=== PATIENT | male | born 1955 | race Caucasian/White ===

== ENCOUNTER 2016-05-09 23:05 | Emergency (ER) | payer OTHER ==
[~2016-05-09] VITALS: Ht 175.2 cm; Wt 113.4 kg
[~2016-05-09 23:05] MED LIST: ASCO-CAPS-500500 MG PO; ASPIRIN ADULT L81 M1 PO; ASPIRIN325 MG PO; ATORVASTATIN CA20 M1 PO; B-1100 M1 PO; COLACE100 MG PO; CRESTOR20 M1 PO; DAILY MULTIPLE1 TA6 PO; FERROUS SULFAT324 M2 PO; FERROUS SULFAT324 MG PO; FISH OIL CONC1000 MG PO; GEODON80 MG PO; GLUCOPHAGE500 M1 PO; LASIX20 MG PO; METOPROLOL SUC100 M1 PO; METOPROLOL SUCC50 M1 PO; METOPROLOL TART50 M1 PO; METOPROLOL50 MG PO; MIRTAZAPINE15 M2 PO; MIRTAZAPINE30 M2 PO; MULTI VITAMINS1 TAB PO; NATURE'S BLEND F1 MG PO; NITROGLYCERIN0.4 MG SL; NITROSTAT0.4 MG SL; OMEPRAZOLE D/R20 MG PO; OMEPRAZOLE MAGNESIUM PO; OMEPRAZOLE20 M2 PO; POTASSIUM CHLORIDE E PO; PRILOSEC20 MG PO; PRILOSEC40 M1 PO; PROVENTIL0.09 MG/A1 INH; QUETIAPINE FUM100 M1 PO; QUETIAPINE FUM100 M3 PO; SEROQUEL XR300 MG PO; SEROQUEL XR400 MG PO; SEROQUEL100 MG PO; SEROQUEL400 M1 PO; SEROQUEL400 MG PO; SIMVASTATIN80 MG PO; SPIRIVA18 MCG PO; SYNTHROID0.025 MG PO; VENTOLIN H0.09 MG/AC INH; VITAMIN B-11 TAB PO; VITAMIN D31000 UNIT PO; VITAMIN D50000 I3 PO; ZIPRASIDONE HCL80 M1 PO; ZITHROMAX250 MG PO
[2016-05-10 03:50] LABS: BILIRUBIN NEGATIVE (NEGATIVE); BLOOD NEGATIVE (NEGATIVE); CLARITY CLEAR (CLEAR); COLOR YELLOW (YELLOW); GLUCOSE NEGATIVE (NEGATIVE); KETONE NEGATIVE (NEGATIVE); LEUKO ESTERASE NEGATIVE (NEGATIVE); NITRITE NEGATIVE (NEGATIVE); PROTEIN NEGATIVE (NEGATIVE); SPECIFIC GRAVITY <= 1.005 (1.005-1.030); UROBILINOGEN 0.2 E.U./dl (0.2-1.0)
[2016-05-10 03:51] LABS: BASO # 0.1 10*3/uL (0.0-0.1); BASO % 1.4 % (0.0-1.0); EOS # 0.3 10*3/uL (0.0-0.4); EOS % 4.4 % (1.0-4.0); HEMATOCRIT 44.6 % (42.0-52.0); IG # 0.1 10*3/uL (0.0-0.1); LYMPH % 41.1 % (27.0-41.0); MEAN CELL VOLUME 90.8 fl (80.0-94.0); MEAN CORPUSCULAR HGB 30.5 pg (27.0-31.0); MEAN CORPUSCULAR HGB CONC 33.6 g/dl (33.0-37.0); MEAN PLATELET VOLUME 10.4 fl (9.6-12.3); MONO # 0.3 10*3/uL (0.1-1.0); MONO % 4.4 % (3.0-9.0); NEUT # 3.5 10*3/uL (2.3-7.9); NEUT % 47.7 % (47.0-73.0); PLATELET COUNT AUTOMATED 248 10*3/uL (130-400); RED BLOOD COUNT 4.91 10*6/uL (4.50-5.90); RED CELL DISTRI WIDTH 13.1 % (0-14.5); WHITE BLOOD COUNT 7.3 10*3/uL (4.8-10.8)
[2016-05-10 03:56] LABS: EPITHELIAL CELLS 0-5
[2016-05-10 03:57] LABS: URINE REFLEX COMMENT NO (NO); WBC 0-2 wbc/hpf (0-5)
[2016-05-10 04:07] LABS: URINE AMPHETAMINES < 1000 (1000ng/ml); URINE BARBITURATES < 200 (200ng/ml); URINE COCAINE < 300 (300ng/ml)
[2016-05-10 04:08] LABS: ALBUMIN 3.7 gm/dl (3.1-4.5); ALKALINE PHOSPHATASE 100 U/L (45-117); BILIRUBIN, TOTAL 0.2 mg/dl (0.2-1.0); BUN 7 mg/dl (7-24); CARBON DIOXIDE 26 mmol/L (21-32); CHLORIDE 105 mmol/L (98-107); EST GLOM FILT AFRICAN AMERICAN > 60 ml/min; GLUCOSE 106 mg/dL (65-99); POTASSIUM 4.6 mmol/L (3.5-5.1); SGOT/AST 23 IU/L (3-35); SGPT/ALT 31 U/L (12-78); SODIUM 143 mmol/L (136-145); TOTAL PROTEIN 7.2 gm/dL (6.4-8.2)
[2016-05-10] MEDS ORDERED: SEROQUEL XR50 MG PO (07:51)
== END 2016-05-10 14:11 | disposition home or self-care (01) ==
LOC: ED 23:05
PROVIDERS: Emergency Medicine Emergency Medical Services
DX: R78.0 Finding of alcohol in blood (principal); I48.91 Unspecified atrial fibrillation; I25.10 Atherosclerotic heart disease of native coronary artery without angina pectoris; J44.9 Chronic obstructive pulmonary disease, unspecified; E03.9 Hypothyroidism, unspecified; K21.9 Gastro-esophageal reflux disease without esophagitis; F32.9 Major depressive disorder, single episode, unspecified; F17.200 Nicotine dependence, unspecified, uncomplicated; F12.10 Cannabis abuse, uncomplicated; F31.9 Bipolar disorder, unspecified; F20.9 Schizophrenia, unspecified; Z88.6 Allergy status to analgesic agent; Z79.82 Long term (current) use of aspirin; Z79.899 Other long term (current) drug therapy

== ENCOUNTER 2016-06-15 14:26 | Inpatient (IN) | payer OTHER ==
[~2016-06-15] VITALS: Ht 172.7 cm; Wt 86.2 kg
--- NOTE | ~2016-06-15 | EKG ---
[place], [place] ELECTROCARDIOGRAM REPORT NAME: CELESTINO RESENDIZ SR UNIT #: [id number] ROOM: [facility] [place] DOCTOR: JULIANNE ARMSTRONG MD BIRTHDATE: [birth year] DOS: 06/15/2016 TIME: 1810 hours. FINDINGS: 1. Normal sinus rhythm at 72 with normal axis. 2. Normal electrocardiogram. JULIANNE ARMSTRONG MD CM:EKGRPT:ELECTROCARDIOGRAM REPORT [id number] JULIANNE ARMSTRONG MD
--- NOTE | ~2016-06-15 | CON ---
[place], [place] REPORT OF CONSULTATION [id number] #: [id number] ROOM: 401 DOCTOR: RAD LUEVANO MD BIRTHDATE: [birth year] DOS: 06/17/2016 PSYCHIATRIC CONSULTATION CHIEF COMPLAINT: "I have been abusing this body for 46 years. I better do something about much longer" HISTORY OF PRESENT ILLNESS: This is a 61-year-old white male who is well known to me from previous stays on the [facility]. He presents now for the [facility] due to alcohol withdrawal. He states he drinks 12-24 ounce beers a day. He also smokes marijuana and uses other drugs. He recently did smoke some crack cocaine. He does have a significant history of schizoaffective disorder and does currently endorse depression with positive auditory hallucinations. He is hearing voices. At times, the voices tell him to hurt himself or others. PAST MEDICAL HISTORY: Remarkable for atrial fibrillation, benign tumor of the esophagus, coronary artery disease, COPD, GERD, hypothyroidism, and a history of schizoaffective disorder as well as polysubstance dependence. MENTAL STATUS: He is alert and oriented. Mood is rather labile. He exhibits both symptoms of depression as well as shelby. He is also grossly psychotic and is experiencing significant hallucinations. Memory is fairly intact. DIAGNOSIS: Schizoaffective disorder, bipolar type. PLAN: I will go ahead and augment his Seroquel, which he is taking with Invega. The severity of his mood lability and psychosis is such that I do think he would benefit from the Invega. The other benefit that it has is we can consider switching him to Invega Sustenna, which will improve his compliance greatly and may also help him for prevent relapse on substance abuse. I do think he self medicate to cover the voices. He is willing to come down to the psychiatric unit once he is medically cleared. RAD LUEVANO MD CM:CONSTR:REPORT OF CONSULTATION 1201 06/18/16 0352 interface
[~2016-06-15 14:26] MED LIST changes: +SEROQUEL XR50 MG PO
[2016-06-15] MEDS ORDERED: QUETIAPINE FUM100 M2 PO (15:06)
[2016-06-15 15:07] VITALS: BP 124/76
[2016-06-15 15:23] LABS: BILIRUBIN NEGATIVE (NEGATIVE); BLOOD NEGATIVE (NEGATIVE); CLARITY CLEAR (CLEAR); COLOR STRAW (YELLOW); GLUCOSE NEGATIVE (NEGATIVE); KETONE NEGATIVE (NEGATIVE); LEUKO ESTERASE NEGATIVE (NEGATIVE); NITRITE NEGATIVE (NEGATIVE); PROTEIN NEGATIVE (NEGATIVE); SPECIFIC GRAVITY <= 1.005 (1.005-1.030); UROBILINOGEN 0.2 E.U./dl (0.2-1.0)
[2016-06-15 15:29] LABS: URINE AMPHETAMINES < 1000 (1000ng/ml); URINE BARBITURATES < 200 (200ng/ml); URINE COCAINE < 300 (300ng/ml)
[2016-06-15 15:39] LABS: BASO # 0.1 10*3/uL (0.0-0.1); BASO % 1.6 % (0.0-1.0); EOS # 0.2 10*3/uL (0.0-0.4); EOS % 2.5 % (1.0-4.0); HEMATOCRIT 43.7 % (42.0-52.0); HEMOGLOBIN 14.6 g/dl (14.0-18.0); LYMPH # 2.3 10*3/uL (1.3-4.4); LYMPH % 31.2 % (27.0-41.0); MEAN CORPUSCULAR HGB 30.4 pg (27.0-31.0); MEAN CORPUSCULAR HGB CONC 33.4 g/dl (33.0-37.0); MEAN PLATELET VOLUME 10.2 fl (9.6-12.3); MONO # 0.6 10*3/uL (0.1-1.0); MONO % 7.5 % (3.0-9.0); NEUT # 4.2 10*3/uL (2.3-7.9); NEUT % 56.9 % (47.0-73.0); PLATELET COUNT AUTOMATED 233 10*3/uL (130-400); WHITE BLOOD COUNT 7.3 10*3/uL (4.8-10.8)
[2016-06-15 15:49] LABS: EPITHELIAL CELLS 0-2; URINE REFLEX COMMENT NO (NO); WBC 0-2 wbc/hpf (0-5)
[2016-06-15 15:54] LABS: ALBUMIN 3.5 gm/dl (3.1-4.5); ALKALINE PHOSPHATASE 79 U/L (45-117); BILIRUBIN, TOTAL 0.2 mg/dl (0.2-1.0); BUN 7 mg/dl (7-24); CARBON DIOXIDE 22 mmol/L (21-32); CHLORIDE 107 mmol/L (98-107); EST GLOM FILT AFRICAN AMERICAN > 60 ml/min; GLUCOSE 93 mg/dL (65-99); POTASSIUM 4.6 mmol/L (3.5-5.1); SGOT/AST 21 IU/L (3-35); SGPT/ALT 24 U/L (12-78); SODIUM 141 mmol/L (136-145); TOTAL PROTEIN 7.1 gm/dL (6.4-8.2)
[2016-06-15 17:21] VITALS: BP 128/75
[2016-06-15] MEDS ORDERED: SEROQUEL XR400 MG PO (17:23)
[2016-06-15] MEDS ORDERED: LOPRESSOR50 M1 PO (17:24)
[2016-06-15 20:00] VITALS: BP 145/86
[2016-06-16] VITALS: BP 102/53
[2016-06-16 04:00] VITALS: BP 104/54
[2016-06-16 08:00] VITALS: BP 133/68
[2016-06-16 12:00] VITALS: BP 135/70
[2016-06-16 16:00] VITALS: BP 125/65; BP 138/73
[2016-06-16 20:00] VITALS: BP 132/75
[2016-06-17] VITALS: BP 152/92
[2016-06-17 08:00] VITALS: BP 132/66
[2016-06-17 12:00] VITALS: BP 146/58
[2016-06-17 16:00] VITALS: BP 140/80
[2016-06-17 20:00] VITALS: BP 153/75
[2016-06-18] VITALS: BP 116/80
[2016-06-18 08:00] VITALS: BP 110/62
[2016-06-18 12:00] VITALS: BP 113/59
[2016-06-18] MEDS ORDERED: NITROSTAT0.4 MG SL (15:06)
[2016-06-18] MEDS ORDERED: VITAMIN B-11 TAB PO (15:30)
[2016-06-18] MEDS ORDERED: NATURE'S BLEND F1 MG PO (15:31)
[2016-06-18] MEDS ORDERED: MULTIVITAMIN1 TAB PO (15:31)
[2016-06-18] MEDS ORDERED: SENOKOTXTRA17.2 MG PO (15:31)
[2016-06-18] MEDS ORDERED: ZOFRAN4 MG PO (15:32)
[2016-06-18] MEDS ORDERED: ROBAXIN-750750 MG PO (15:33)
[2016-06-18] MEDS ORDERED: IMODIUM A-D2 M3 PO ×2 (15:33)
[2016-06-18] MEDS ORDERED: BENTYL10 MG PO (15:34)
[2016-06-18] MEDS ORDERED: DULCOLAX10 M1 RC (15:35)
== END 2016-06-18 13:10 | disposition home health service (06) | DRG 897 ==
LOC: ED 14:26 → 4E 16:12 → EDHOLD 16:12 → 4E 16:43
PROVIDERS: Physician Assistant
DX: F10.239 Alcohol dependence with withdrawal, unspecified (principal); I48.0 Paroxysmal atrial fibrillation; I25.10 Atherosclerotic heart disease of native coronary artery without angina pectoris; J44.9 Chronic obstructive pulmonary disease, unspecified; K21.9 Gastro-esophageal reflux disease without esophagitis; E03.9 Hypothyroidism, unspecified; F12.10 Cannabis abuse, uncomplicated; F17.210 Nicotine dependence, cigarettes, uncomplicated; F25.0 Schizoaffective disorder, bipolar type; Z95.1 Presence of aortocoronary bypass graft; Z95.5 Presence of coronary angioplasty implant and graft; Z90.49 Acquired absence of other specified parts of digestive tract; Z71.6 Tobacco abuse counseling; Z80.0 Family history of malignant neoplasm of digestive organs; Z82.49 Family history of ischemic heart disease and other diseases of the circulatory system; Z88.8 Allergy status to other drugs, medicaments and biological substances; Z79.51 Long term (current) use of inhaled steroids; Z79.82 Long term (current) use of aspirin

== ENCOUNTER 2016-06-18 11:36 | Inpatient (IN) | payer OTHER ==
[~2016-06-18] VITALS: Ht 172.7 cm; Wt 87.1 kg
--- NOTE | ~2016-06-18 | DS ---
[place], [place] DISCHARGE SUMMARY NAME: CELE[facility]INO RESENDIZ SR [facility] #: [id number] UNIT #: [id number] ROOM: 310 DOCTOR: ALEYDA MALDONADO BIRTHDATE: [birth year] DOS: 06/21/2016 HISTORY OF PRESENT ILLNESS: This is a 61-year-old male known to us from previous stays at the behavioral health unit as well as psych consults while on the medical floor. The patient had presented to [facility] with significant alcohol withdrawal symptoms. He drinks approximately twelve 24 ounce beers a day. He also smokes marijuana and uses any drugs he can. Most recently, he had some crack cocaine. Significant history of schizoaffective disorder and found to be increasingly more depressed and despondent, having positive auditory hallucinations, often times they command him and tell him to hurt himself or others, sometimes the voices just comment on what he is doing. He is open to receiving help and adjusting medications as needed. PAST MEDICAL HISTORY: AFib, benign tumor of the esophagus, coronary artery disease, COPD, GERD, hypothyroidism, polysubstance dependence and abuse, schizoaffective disorder. DIAGNOSIS: AXIS I: Schizoaffective disorder. HOSPITAL COURSE: We discontinued his Geodon in lieu of Invega 6 mg in the morning. He tolerated the medications without side effect. We ultimately gave him a loading dose of the Invega Sustenna. His second loading dose is due on 06/26/2016 at 156 mg IM and then he will receive this monthly, next dose will be due on 07/27/2016. No side effects of the medications observed. We maintained his Seroquel to help with mood stabilization due to his severity of his psychosis and his mixed polysubstance dependence, this also is aiding him in sleep. We are using the 2 antipsychotics and it is warranted at this point given the severity of his symptoms and multiple psychiatric admissions. We engaged in individual and haas milieu therapy and worked with director social welfare for further drug abuse treatment. MENTAL STATUS: Alert and oriented to person, place, and time. Mood is euthymic. Affect is appropriate. There is no shelby or hypomania. Denies and actually states that his hallucinations are gone. Memory is intact. The patient was supposed to be discharged tomorrow, but he is adamant that it has been 1:30 today, will be 24 hours since his last shot and he wants to go home. PLAN: The patient is being discharged to home in stable condition. He received his Invega Sustenna injection of 234 mg yesterday. His second loading dose of the Invega Sustenna at 156 mg IM, is due on 06/26/2016. [facility]. He will then receive his Invega Sustenna injection monthly thereafter at 156 mg. He is also on Seroquel 600 mg at bedtime at 8:00 p.m. to help with sleep and mood lability. He will follow up with the drug treatment center as scheduled. [place], [place] DISCHARGE SUMMARY NAME: CELESTINO RESENDIZ SR UNIT #: [id number] ROOM: [facility] DOCTOR: ALEYDA MALDONADO BIRTHDATE: [birth year] CHERI MALDONADO CNP CM:GLEN [id number] 05 ALEYDA MALDONADO 06/21/16 2113 interface
--- NOTE | ~2016-06-18 | WRIGHTHP ---
[place], [place] PATIENT HISTORY AND PHYSICAL EXAM NAME: CELESTINO RESENDIZ SR [facility] #: [id number] UNIT #: [id number] ROOM: 310 DOCTOR: RAD LUEVANO MD BIRTHDATE: [birth year] DOS: 06/18/2016 CHIEF COMPLAINT: "I am still seeing things and hearing things, I just want to get better." HISTORY OF PRESENT ILLNESS: This is a 61-year-old white male well known to me from previous stays at the [facility] as well as a psych consult while on the medical floor. The patient had presented to [facility] with significant alcohol withdrawal symptoms. He reports he drinks twelve 24 ounce beers daily. He also smokes marijuana and uses any drugs he can. Most recently, he did smoke crack cocaine. The patient has a significant history of schizoaffective disorder and has found that recently he has been increasingly more depressed and despondent and has been having positive auditory hallucinations. The hallucinations oftentimes are command and they tell him to hurt himself or others and at other times, the voices just comment on what he is doing. He is very open to receiving help and once his medications adjusted so that these symptoms will be minimized. PAST MEDICAL HISTORY: Remarkable for atrial fibrillation, a benign tumor of the esophagus, coronary artery disease, COPD, GERD, hypothyroidism, polysubstance dependence and schizoaffective disorder. MENTAL STATUS: The patient is alert and oriented to person, place, and time. Mood is somewhat depressed with some anxious overtones. He endorses both the presence of auditory and visual hallucinations as well as command hallucinations. The voices are troublesome and often keep him awake at night. There are no symptoms of shelby or hypomania. His memory is relatively intact. DIAGNOSES: Schizoaffective disorder and polysubstance dependence. PLAN: I have already discontinued his Geodon in lieu of Invega 6 mg in the morning. My hope is to ultimately load him with Invega Sustenna hoping that this improves compliance and listens to the possibility of side effects. Given his severity of his psychosis, especially when mixed with polysubstance dependence, I will maintain him on his Seroquel as this has given him some mood stabilization properties and aid to his sleep. The use of 2 antipsychotics is warranted at this point given the severity of symptoms and his multiple psychiatric admissions. We will engage him in individual and haas milieu activity. We will discuss the case with director of social services regarding further drug abuse treatment and will proceed accordingly. [place], [place] PATIENT HISTORY AND PHYSICAL EXAM NAME: CELESTINO RESENDIZ SR UNIT #: [id number] ROOM: 310 DOCTOR: RAD LUEVANO MD BIRTHDATE: [birth year] RAD LUEVANO MD CM:HISPHYS:PATIENT HISTORY AND PHYSICAL EXAMINATION 3 2 RAD LUEVANO MD 06/19/16 0824 interface
--- NOTE | ~2016-06-18 | PR ---
[place], [place] PROGRESS NOTE NAME: CELESTINO RESENDIZ SR UNIT #: [id number] ROOM: 310 DOCTOR: RAD LUEVANO MD BIRTHDATE: [birth year] DOS: 06/20/2016 CHIEF COMPLAINT: "I like that Seroquel at nighttime." SUMMARY OF THE VISIT: The patient was interviewed in the [place]. He was standing looking out the window. He stopped and engaged readily in conversation. He reports that he does like taking all the Seroquel at nighttime because it did help him sleep and stopped his racing thoughts. He still does complain of hallucinations, but feels that they are gradually getting better since he has been here. He is also on board with receiving the Invega Sustenna injection and is willing to have that today and followup then at [facility] for the future injections. MENTAL STATUS: He is alert and oriented to person, place and time. Mood does seem to be trending towards euthymia. Affect is more appropriate. There are no symptoms of hypomania or shelby. He still endorses positive auditory hallucinations, some of them command, but the frequency and intensity does seem to be diminishing. Memory is fully intact. PLAN: I will load him with Invega Sustenna 234 mg IM today. He will receive a secondary loading dose of Invega Sustenna 156 mg IM on 06/26/2016 at the [facility] or through visiting nurses. He will then receive Invega Sustenna injections monthly thereafter while also maintaining with the Seroquel at bedtime. We will continue to engage him in individual and haas milieu activity with the plan to discharge then when psychiatrically stable. RAD LUEVANO MD CM:PNTRANS 0741 1352 RAD LUEVANO MD 06/20/16 1353 interface
[~2016-06-18 11:36] MED LIST changes: +LOPRESSOR50 M1 PO; +QUETIAPINE FUM100 M2 PO
[2016-06-18 13:44] VITALS: BP 114/60
[2016-06-18] MEDS ORDERED: NITROSTAT0.4 MG SL (15:06)
[2016-06-18 15:11] VITALS: BP 114/60
[2016-06-18] MEDS ORDERED: VITAMIN B-11 TAB PO (15:30)
[2016-06-18] MEDS ORDERED: NATURE'S BLEND F1 MG PO (15:31)
[2016-06-18] MEDS ORDERED: SENOKOTXTRA17.2 MG PO (15:31)
[2016-06-18] MEDS ORDERED: MULTIVITAMIN1 TAB PO (15:31)
[2016-06-18] MEDS ORDERED: ZOFRAN4 MG PO (15:32)
[2016-06-18] MEDS ORDERED: ROBAXIN-750750 MG PO (15:33)
[2016-06-18] MEDS ORDERED: IMODIUM A-D2 M3 PO ×2 (15:33)
[2016-06-18] MEDS ORDERED: BENTYL10 MG PO (15:34)
[2016-06-18] MEDS ORDERED: DULCOLAX10 M1 RC (15:35)
[2016-06-18 19:35] VITALS: BP 125/71
[2016-06-19 06:57] LABS: BASO # 0.1 10*3/uL (0.0-0.1); BASO % 1.3 % (0.0-1.0); EOS # 0.3 10*3/uL (0.0-0.4); EOS % 3.3 % (1.0-4.0); HEMATOCRIT 47.4 % (42.0-52.0); HEMOGLOBIN 15.3 g/dl (14.0-18.0); LYMPH # 2.5 10*3/uL (1.3-4.4); LYMPH % 24.6 % (27.0-41.0); MEAN CELL VOLUME 93.9 fl (80.0-94.0); MEAN CORPUSCULAR HGB 30.3 pg (27.0-31.0); MEAN CORPUSCULAR HGB CONC 32.3 g/dl (33.0-37.0); MEAN PLATELET VOLUME 10.7 fl (9.6-12.3); MONO # 0.8 10*3/uL (0.1-1.0); MONO % 7.7 % (3.0-9.0); NEUT # 6.4 10*3/uL (2.3-7.9); NEUT % 62.7 % (47.0-73.0); PLATELET COUNT AUTOMATED 242 10*3/uL (130-400); RED BLOOD COUNT 5.05 10*6/uL (4.50-5.90); RED CELL DISTRI WIDTH 13.2 % (0-14.5); WHITE BLOOD COUNT 10.1 10*3/uL (4.8-10.8)
[2016-06-19 07:30] LABS: ALBUMIN 3.7 gm/dl (3.1-4.5); ALKALINE PHOSPHATASE 78 U/L (45-117); BILIRUBIN, TOTAL 0.4 mg/dl (0.2-1.0); BUN 16 mg/dl (7-24); CARBON DIOXIDE 30 mmol/L (21-32); CHLORIDE 103 mmol/L (98-107); EST GLOM FILT AFRICAN AMERICAN > 60 ml/min; GLUCOSE 110 mg/dL (65-99); POTASSIUM 4.4 mmol/L (3.5-5.1); SGOT/AST 21 IU/L (3-35); SGPT/ALT 23 U/L (12-78); SODIUM 141 mmol/L (136-145); TOTAL PROTEIN 7.5 gm/dL (6.4-8.2)
[2016-06-19 07:32] VITALS: BP 113/64
[2016-06-19 08:51] LABS: HEMOGLOBIN A1c 5.9 % (4.8-5.6)
[2016-06-19 20:54] VITALS: BP 100/61
[2016-06-20 07:46] VITALS: BP 116/70
[2016-06-20 20:00] VITALS: BP 116/60
[2016-06-21 07:35] VITALS: BP 116/73
[2016-06-21 07:41] LABS: BUN 14 mg/dl (7-24); CARBON DIOXIDE 28 mmol/L (21-32); CHLORIDE 106 mmol/L (98-107); EST GLOM FILT AFRICAN AMERICAN > 60 ml/min; GLUCOSE 112 mg/dL (65-99); SODIUM 142 mmol/L (136-145)
[2016-06-21] MEDS ORDERED: QUETIAPINE FUM300 M1 PO (08:32)
[2016-06-21] MEDS ORDERED: INVEGA SUSTENN156 MG IM (08:32)
== END 2016-06-21 12:15 | disposition home or self-care (01) | DRG 885 ==
LOC: 3N 11:36
PROVIDERS: Internal Medicine; Psychiatry & Neurology Psychiatry
DX: F25.0 Schizoaffective disorder, bipolar type (principal); F33.9 Major depressive disorder, recurrent, unspecified; F19.20 Other psychoactive substance dependence, uncomplicated; I25.10 Atherosclerotic heart disease of native coronary artery without angina pectoris; J44.9 Chronic obstructive pulmonary disease, unspecified; K21.9 Gastro-esophageal reflux disease without esophagitis; E03.9 Hypothyroidism, unspecified; I48.0 Paroxysmal atrial fibrillation; Z95.1 Presence of aortocoronary bypass graft; Z82.49 Family history of ischemic heart disease and other diseases of the circulatory system; Z80.0 Family history of malignant neoplasm of digestive organs; Z88.8 Allergy status to other drugs, medicaments and biological substances; Z79.82 Long term (current) use of aspirin; Z79.899 Other long term (current) drug therapy

== ENCOUNTER 2016-06-28 00:46 | Emergency (ER) | payer OTHER ==
[~2016-06-28] VITALS: Ht 170.1 cm; Wt 81.6 kg
[~2016-06-28 00:46] MED LIST changes: +BENTYL10 MG PO; +DULCOLAX10 M1 RC; +IMODIUM A-D2 M3 PO; +INVEGA SUSTENN156 MG IM; +MULTIVITAMIN1 TAB PO; +QUETIAPINE FUM300 M1 PO; +ROBAXIN-750750 MG PO; +SENOKOTXTRA17.2 MG PO; +ZOFRAN4 MG PO
[2016-06-28 01:19] LABS: BASO # 0.1 10*3/uL (0.0-0.1); BASO % 1.7 % (0.0-1.0); EOS # 0.2 10*3/uL (0.0-0.4); EOS % 2.5 % (1.0-4.0); HEMATOCRIT 44.9 % (42.0-52.0); HEMOGLOBIN 14.9 g/dl (14.0-18.0); IG # 0.1 10*3/uL (0.0-0.1); LYMPH # 2.7 10*3/uL (1.3-4.4); MEAN CELL VOLUME 90.9 fl (80.0-94.0); MEAN CORPUSCULAR HGB 30.2 pg (27.0-31.0); MEAN CORPUSCULAR HGB CONC 33.2 g/dl (33.0-37.0); MEAN PLATELET VOLUME 9.9 fl (9.6-12.3); MONO # 0.5 10*3/uL (0.1-1.0); MONO % 5.8 % (3.0-9.0); NEUT # 4.9 10*3/uL (2.3-7.9); NEUT % 57.4 % (47.0-73.0); PLATELET COUNT AUTOMATED 273 10*3/uL (130-400); RED BLOOD COUNT 4.94 10*6/uL (4.50-5.90); RED CELL DISTRI WIDTH 13.1 % (0-14.5); WHITE BLOOD COUNT 8.5 10*3/uL (4.8-10.8)
[2016-06-28 01:31] LABS: BUN 5 mg/dl (7-24); CARBON DIOXIDE 27 mmol/L (21-32); CHLORIDE 102 mmol/L (98-107); EST GLOM FILT AFRICAN AMERICAN > 60 ml/min; GLUCOSE 112 mg/dL (65-99); SODIUM 137 mmol/L (136-145)
[2016-06-28 01:40] LABS: BILIRUBIN NEGATIVE (NEGATIVE); BLOOD NEGATIVE (NEGATIVE); CLARITY CLEAR (CLEAR); COLOR YELLOW (YELLOW); GLUCOSE NEGATIVE (NEGATIVE); KETONE NEGATIVE (NEGATIVE); LEUKO ESTERASE NEGATIVE (NEGATIVE); NITRITE NEGATIVE (NEGATIVE); PH 5.5 (5.0-9.0); PROTEIN NEGATIVE (NEGATIVE); SPECIFIC GRAVITY <= 1.005 (1.005-1.030); UROBILINOGEN 0.2 E.U./dl (0.2-1.0)
[2016-06-28 01:45] LABS: URINE REFLEX COMMENT NO (NO)
[2016-06-28 01:49] LABS: URINE AMPHETAMINES < 1000 (1000ng/ml); URINE BARBITURATES < 200 (200ng/ml); URINE COCAINE < 300 (300ng/ml)
[2016-06-28] MEDS ORDERED: DOXEPIN HCL10 MG PO (03:36)
[2016-06-28] MEDS ORDERED: ZIPRASIDONE HCL80 M1 PO (03:37)
== END 2016-06-28 15:53 | disposition home or self-care (01) ==
LOC: ED 00:46
PROVIDERS: Emergency Medicine Emergency Medical Services
DX: F10.129 Alcohol abuse with intoxication, unspecified (principal); I48.91 Unspecified atrial fibrillation; F31.9 Bipolar disorder, unspecified; I25.10 Atherosclerotic heart disease of native coronary artery without angina pectoris; J44.9 Chronic obstructive pulmonary disease, unspecified; K21.9 Gastro-esophageal reflux disease without esophagitis; F17.200 Nicotine dependence, unspecified, uncomplicated; E03.9 Hypothyroidism, unspecified; F20.9 Schizophrenia, unspecified; Z88.6 Allergy status to analgesic agent; Z79.82 Long term (current) use of aspirin; Z79.899 Other long term (current) drug therapy; Z90.49 Acquired absence of other specified parts of digestive tract; Z95.1 Presence of aortocoronary bypass graft; Z95.5 Presence of coronary angioplasty implant and graft

== ENCOUNTER 2017-05-02 13:53 | Inpatient (IN) | payer OTHER ==
[~2017-05-02] VITALS: Ht 172.7 cm; Wt 84.0 kg
--- NOTE | ~2017-05-02 | CON ---
[place], [place] REPORT OF CONSULTATION NAME[id number] UNIT #: [id number] ROOM: [place] [address] DOCTOR: RAD GARCIA MD BIRTHDATE: [birth year] DOS: 05/03/2017 CHIEF COMPLAINT: "Hey, Dr. Garcia, I need to come in to the psych unit." HISTORY OF PRESENT ILLNESS: This is a 61-year-old white male well known to me from previous admissions to the [facility] as well as briefly in my private practice in [place]. The patient had presented to [facility] approximately 2 days ago acutely intoxicated, stating that he was suicidal and had a plan to kill himself. Once his alcohol level came down, [facility] discharged him back to the street. He eventually reached out to [place] [facility] stating that he was suicidal and hearing voices. The patient states that he was going to stab himself in the chest or walk into traffic. He also was having fleeting homicidal ideations against his neighbor. The patient is a rather heavy drinker and has been drinking for the last 43 years. It is unclear how much he drinks. The chart here says 8 beers a day, although at times, he has told me he has drank as much as 30 beers daily. The patient has a lengthy psychiatric history of schizoaffective disorder and has been compliant with his Invega injections, but has ran out of his Seroquel for some time, which has helped precipitate his mental decline. PAST MEDICAL HISTORY: Remarkable for significant alcohol dependence, a benign tumor of the esophagus, coronary artery disease, COPD, hypertension, GERD, hyperlipidemia, neuropathy, nicotine abuse, diabetes and vitamin D deficiency. MENTAL STATUS: The patient is alert and oriented with some gaps. Mood does seem to be rather depressed. Affect is flat, blunted with a constricted range. He endorses continued auditory hallucinations, some of the command type. DIAGNOSIS: Schizoaffective disorder. PLAN: At this point, once you are done with alcohol withdrawal, I would be happy to take him back to the [facility] for further psychiatric stabilization. I do agree with restarting his Seroquel at 400 mg at bedtime. I will go ahead also and start him on Remeron 15 mg at bedtime to combat the depressive symptomatology to aid sleep and appetite. Should you require further intervention, feel free to contact me at any time. RAD GARCIA MD CM:CONSTR:REPORT OF CONSULTATION 0953 05/03/17 1004 interface
[~2017-05-02 13:53] MED LIST changes: +DOXEPIN HCL10 MG PO
[2017-05-02 14:03] VITALS: BP 113/76
[2017-05-02 14:12] LABS: BASO # 0.1 10*3/uL (0.0-0.1); BASO % 0.8 % (0.0-1.0); EOS # 0.1 10*3/uL (0.0-0.4); EOS % 1.2 % (1.0-4.0); HEMATOCRIT 41.2 % (42.0-52.0); LYMPH # 2.2 10*3/uL (1.3-4.4); LYMPH % 19.5 % (27.0-41.0); MEAN CELL VOLUME 90.2 fl (80.0-94.0); MEAN CORPUSCULAR HGB 30.6 pg (27.0-31.0); MEAN PLATELET VOLUME 10.1 fl (9.6-12.3); MONO % 9.1 % (3.0-9.0); NEUT # 7.8 10*3/uL (2.3-7.9); PLATELET COUNT AUTOMATED 218 10*3/uL (130-400); RED BLOOD COUNT 4.57 10*6/uL (4.50-5.90); WHITE BLOOD COUNT 11.3 10*3/uL (4.8-10.8)
[2017-05-02 14:17] LABS: BILIRUBIN NEGATIVE (NEGATIVE); BLOOD NEGATIVE (NEGATIVE); CLARITY CLEAR (CLEAR); COLOR YELLOW (YELLOW); GLUCOSE NEGATIVE (NEGATIVE); KETONE NEGATIVE (NEGATIVE); LEUKO ESTERASE NEGATIVE (NEGATIVE); NITRITE NEGATIVE (NEGATIVE); SPECIFIC GRAVITY <= 1.005 (1.005-1.030); UROBILINOGEN 0.2 E.U./dl (0.2-1.0)
[2017-05-02 14:25] LABS: BACTERIA 1+; EPITHELIAL CELLS 0-2; RBC 0-2 rbc/hpf (0-2); URINE AMPHETAMINES < 1000 (1000ng/ml); URINE BARBITURATES < 200 (200ng/ml); URINE BENZODIAZEPINES < 200 (200ng/ml); URINE CANNABINOIDS (THC) < 50 (50ng/ml); URINE COCAINE < 300 (300ng/ml); URINE METHADONE < 300 (300ng/ml); URINE OPIATES < 300 (300ng/ml); WBC 0-2 wbc/hpf (0-5)
[2017-05-02 14:26] LABS: URINE PHENCYCLIDINE < 25 (25ng/ml)
[2017-05-02 14:33] LABS: ALBUMIN 3.9 gm/dl (3.1-4.5); ALKALINE PHOSPHATASE 83 U/L (45-117); BUN 8 mg/dl (7-24); CHLORIDE 100 mmol/L (98-107); CREATININE 0.83 mg/dL (0.70-1.30); SGOT/AST 23 IU/L (3-35); SGPT/ALT 28 U/L (12-78); SODIUM 134 mmol/L (136-145); TOTAL PROTEIN 7.2 gm/dL (6.4-8.2)
[2017-05-02] MEDS ORDERED: NEURONTIN600 MG PO (15:28)
[2017-05-02 16:37] VITALS: BP 122/68
[2017-05-02 16:45] VITALS: BP 138/68
[2017-05-02 16:51] LABS: INTERNATIONAL NORM RATIO 0.9 (2.0-3.5)
[2017-05-02] MEDS ORDERED: SEROQUEL400 M1 PO (19:51)
[2017-05-02 20:00] VITALS: BP 115/68
[2017-05-02 22:27] LABS: CHOLESTEROL 148 mg/dL (<200); HDL CHOLESTEROL 51 mg/dl (40-60); LDL CHOLESTEROL 35 mg/dL (9-159); TRIGLYCERIDES 308 mg/dl (<150); VLDL CHOLESTEROL 62 mg/dL (6-40)
[2017-05-02 22:28] LABS: ETHYL ALCOHOL < 3.0 mg/dl (<3)
[2017-05-03] VITALS: BP 143/73
[2017-05-03 04:00] VITALS: BP 139/77
[2017-05-03 08:00] VITALS: BP 149/73
[2017-05-03 12:00] VITALS: BP 121/63
[2017-05-03 16:00] VITALS: BP 131/64
[2017-05-03 20:00] VITALS: BP 133/64
[2017-05-04] VITALS: BP 114/69
[2017-05-04 07:50] VITALS: BP 128/72
[2017-05-04 08:00] VITALS: BP 137/73
[2017-05-04 12:00] VITALS: BP 137/73
[2017-05-04 16:00] VITALS: BP 138/68
[2017-05-04] MEDS ORDERED: MIRTAZAPINE15 M2 PO (16:01)
[2017-05-04] MEDS ORDERED: CHLORDIAZEPOXID25 M1 PO ×2 (16:01)
[2017-05-04 20:00] VITALS: BP 122/63
== END 2017-05-04 22:27 | disposition home health service (06) | DRG 897 ==
LOC: ED 13:53 → EDHOLD 16:08 → ICCU 16:08 → 5E 05-03 13:58
PROVIDERS: Emergency Medicine; Internal Medicine Hospice and Palliative Medicine
DX: F10.120 Alcohol abuse with intoxication, uncomplicated (principal); R65.10 Systemic inflammatory response syndrome (SIRS) of non-infectious origin without acute organ dysfunction; E11.40 Type 2 diabetes mellitus with diabetic neuropathy, unspecified; I48.91 Unspecified atrial fibrillation; R45.851 Suicidal ideations; E11.65 Type 2 diabetes mellitus with hyperglycemia; E87.1 Hypo-osmolality and hyponatremia; K92.1 Melena; F25.0 Schizoaffective disorder, bipolar type; J44.9 Chronic obstructive pulmonary disease, unspecified; K21.9 Gastro-esophageal reflux disease without esophagitis; I25.10 Atherosclerotic heart disease of native coronary artery without angina pectoris; R00.0 Tachycardia, unspecified; D72.829 Elevated white blood cell count, unspecified; G89.29 Other chronic pain; M54.42 Lumbago with sciatica, left side; E78.2 Mixed hyperlipidemia; M54.41 Lumbago with sciatica, right side; I10 Essential (primary) hypertension; E55.9 Vitamin D deficiency, unspecified; D72.810 Lymphocytopenia; E78.00 Pure hypercholesterolemia, unspecified; E03.9 Hypothyroidism, unspecified; F17.210 Nicotine dependence, cigarettes, uncomplicated; Z90.49 Acquired absence of other specified parts of digestive tract; Z95.1 Presence of aortocoronary bypass graft; Z95.5 Presence of coronary angioplasty implant and graft; Z79.82 Long term (current) use of aspirin; Z79.84 Long term (current) use of oral hypoglycemic drugs; Z71.6 Tobacco abuse counseling; Z79.899 Other long term (current) drug therapy; Z88.8 Allergy status to other drugs, medicaments and biological substances; Z82.49 Family history of ischemic heart disease and other diseases of the circulatory system; Z80.0 Family history of malignant neoplasm of digestive organs

== ENCOUNTER 2017-05-04 22:49 | Inpatient (IN) | payer OTHER ==
[~2017-05-04] VITALS: Ht 172.7 cm; Wt 84.0 kg
--- NOTE | ~2017-05-04 | DS ---
[place], [place] DISCHARGE SUMMARY NAME: CELESTINO RESENDIZ SR [facility] #: [id number] UNIT #: [id number] ROOM: 311 DOCTOR: RAD GARCIA MD BIRTHDATE: [birth year] DOS: 05/07/2017 CHIEF COMPLAINT: "I just need my meds adjusted Dr. Garcia and I will be good." HISTORY OF PRESENT ILLNESS: This is a 61-year-old white male known to me from previous admissions to the [facility] as well as my private practice in [place]. The patient had initially presented to [facility] acutely intoxicated, stating that he was suicidal. As he cleared and sobered up, he denied suicidality. However, the very next day, the patient presented to the emergency room at [facility] again acutely intoxicated and again stating that he was depressed and suicidal. At this time, he was admitted to ICU to detox off of the alcohol and to determine lethality. While he was in the ICU, he continued to complain of persistent depression and state that he was not sleeping or eating well. Once he was detoxed successfully in ICU, he was transferred to the behavioral health care unit for further evaluation and treatment. PAST MEDICAL HISTORY: Remarkable for a lengthy history of alcohol dependence, benign tumor of the esophagus, coronary artery disease, chronic lumbar pain, COPD, hypertension, GERD, cannabis abuse, hyperlipidemia, neuropathy and vitamin D deficiency as well as diabetes. SUMMARY OF HOSPITAL COURSE: The patient was admitted to the unit where he was maintained on his Seroquel and Invega Sustenna. I did initially attempt to put him on Remeron, but he refused this. Later, I did discuss with him the pros and cons of trying Cymbalta. I was using Cymbalta, not only to combat the serious depression that he was encountering but also to impact positively on his pain. He did agree to try the Cymbalta. We started the dose at 30 mg twice daily and he had almost immediate improvement in his overall pain. I did increase it later to 30 mg in the morning and 60 mg at night. He tolerated this well and he did report a significant alleviation of his pain. He also noted improved sleep and he likewise felt that it was already helping his mood to improve. He had improved sufficiently to be able to be discharged to have followup in the community. He convincingly denied suicidal thoughts, homicidal thoughts or any self-injurious thoughts. He likewise denied any medication side effects whatsoever. The patient was discharged then back to the community. MENTAL STATUS AT DISCHARGE: The patient is alert and oriented to person, place, and time. Mood was strongly trending towards euthymia. Affect was much more appropriate. As mentioned previously, he denied suicidal thoughts, homicidal thoughts or any self-injurious thoughts. He denied any continuation of neurovegetative symptoms. Likewise, he denied hypomania or shelby. There were no auditory or visual hallucinations. No delusions, no paranoia. Short, intermediate, and long-term memory were intact. DIAGNOSIS UPON DISCHARGE: Schizoaffective disorder. PLAN: All of his prescriptions except for his Zostrix high potency cream [facility] [place]. He will have followup at the [facility]. [place], [place] DISCHARGE SUMMARY NAME: MARTÍN SRCELESTINO Len [facility]: [id number] UNIT #: [id number] ROOM: [facility] DOCTOR: RAD GARCIA MD BIRTHDATE: [birth year] RAD GARCIA MD CM:DISCHKAISER 2 9 RAD GARCIA MD 05/07/17927 interface
--- NOTE | ~2017-05-04 | WRIGHTHP ---
[place], [place] PATIENT HISTORY AND PHYSICAL EXAM NAME: CELESTINO RESENDIZ SR UNIT #: [id number] ROOM: 311 DOCTOR: RAD GARCIA MD BIRTHDATE: [birth year] DOS: 05/05/2017 PSYCHIATRIC EVALUATION CHIEF COMPLAINT: "I just need my meds adjusted Dr. Garcia and I be good." HISTORY OF PRESENT ILLNESS: This is a 61-year-old white male known to me from previous admissions to the [facility] as well as his stay in the ICU. The patient had initially presented to [facility] acutely intoxicated, complaining of increased auditory hallucinations and suicidal thoughts. However, after he sobered up, he stated that these dissipated and he went home. He once again presented a day later to [facility] again acutely intoxicated with an exacerbation of his psychosis and depression. He was admitted this time for further detox and stabilization on medication. PAST MEDICAL HISTORY: Remarkable for significant history of alcohol dependence, benign tumor of the esophagus, coronary artery disease, chronic lumbar pain, COPD, hypertension, GERD, marijuana abuse, hyperlipidemia, neuropathy, vitamin D deficiency and diabetes. MENTAL STATUS: He is alert and oriented to person, place and time. Mood does seem to be depressed. Affect is flat, blunted with constricted range. He reports currently that his hallucinations have dissipated and that the Seroquel has helped. He does not endorse suicidal thoughts, homicidal thoughts or any self-injurious thoughts. He does have significant chronic pain issues. Memory for the most part is intact. DIAGNOSIS: Schizoaffective disorder. PLAN: He is due for his Invega Sustenna injection of 156 mg IM on May 14. I will put that in the computer so that we keep track of that, maintain his Seroquel 400 mg a day. He does not want the Remeron, so I will discontinue this, but attempt to enlist him to take Cymbalta 30 mg b.i.d. for the pain and I will order him Zostrix high potency cream as well, engage in individual and haas milieu activity, returning to the least restrictive environment when psychiatrically stable. [place], [place] PATIENT HISTORY AND PHYSICAL EXAM NAME: CELESTINO RESENDIZ SR UNIT #: [id number] ROOM: 311 DOCTOR: RAD GARCIA MD BIRTHDATE: [birth year] RAD GARCIA MD CM:HISPHYS:PATIENT HISTORY AND PHYSICAL EXAMINATION 0749 0853 RAD GARCIA MD 05/05/17 0851 interface
--- NOTE | ~2017-05-04 | PR ---
[place], [place] PROGRESS NOTE NAME[id number] UNIT #: [id number] ROOM: 311 DOCTOR: RAD LUEVANO MD BIRTHDATE: [birth year] DOS: 05/06/2017 CHIEF COMPLAINT: "That medicine did help the pain, thank you so much." SUMMARY OF THE VISIT: The patient was interviewed in the dining area where he had just finished his breakfast. He engaged readily in conversation. He did report that he was feeling already some improvement since the Cymbalta was added and states that the pain and tingling in his legs seems to have lessened already. He is hopeful that further treatment with it will help and he did state that he would tell his primary care doctor to continue to prescribe it for him since he is already feeling good things from it. MENTAL STATUS: He is alert and oriented. Mood does seem to be trending towards euthymia. Affect is more appropriate. There is no shelby or hypomania. There are no auditory or visual hallucinations. No delusions, no paranoia. Memory for the most part is intact. PLAN: I will go ahead and increase the Cymbalta from 30 mg twice a day to 30 mg in the morning and 60 mg at night to further impact positively on pain control, combat depression and aid sleep. We will continue to engage him in individual and haas milieu therapy with the plan to return home when psychiatrically stable. RAD LUEVANO MD CM:PNTRANS 0833 1030 RAD LUEVANO MD 05/06/17 1028 interface
[~2017-05-04 22:49] MED LIST changes: +CHLORDIAZEPOXID25 M1 PO; +NEURONTIN600 MG PO
[2017-05-04 23:11] VITALS: BP 143/74
[2017-05-05 07:34] VITALS: BP 150/73
[2017-05-05 08:00] VITALS: BP 145/82
[2017-05-05 17:30] VITALS: BP 154/78
[2017-05-06 08:06] VITALS: BP 115/65; BP 138/78
[2017-05-06 20:27] VITALS: BP 127/51
[2017-05-07 07:40] VITALS: BP 131/82
[2017-05-07] MEDS ORDERED: QUETIAPINE FUM400 M1 PO (09:05)
[2017-05-07] MEDS ORDERED: Zostrix 0.1% T (09:05)
[2017-05-07] MEDS ORDERED: DULOXETINE HCL30 MG PO (09:05)
[2017-05-07] MEDS ORDERED: INVEGA SUSTENN156 MG IM (09:05)
[2017-05-07] MEDS ORDERED: DULOXETINE HCL60 MG PO (09:05)
== END 2017-05-07 12:32 | disposition home or self-care (01) | DRG 885 ==
LOC: 3N 22:49
DX: F25.0 Schizoaffective disorder, bipolar type (principal); E11.40 Type 2 diabetes mellitus with diabetic neuropathy, unspecified; R45.851 Suicidal ideations; F31.4 Bipolar disorder, current episode depressed, severe, without psychotic features; F10.239 Alcohol dependence with withdrawal, unspecified; E11.65 Type 2 diabetes mellitus with hyperglycemia; J44.9 Chronic obstructive pulmonary disease, unspecified; K21.9 Gastro-esophageal reflux disease without esophagitis; F12.10 Cannabis abuse, uncomplicated; Y90.9 Presence of alcohol in blood, level not specified; I25.10 Atherosclerotic heart disease of native coronary artery without angina pectoris; G89.29 Other chronic pain; M54.5 Low back pain; E78.5 Hyperlipidemia, unspecified; I10 Essential (primary) hypertension; E55.9 Vitamin D deficiency, unspecified; E78.2 Mixed hyperlipidemia; F17.210 Nicotine dependence, cigarettes, uncomplicated; Z90.49 Acquired absence of other specified parts of digestive tract; Z95.1 Presence of aortocoronary bypass graft; Z82.49 Family history of ischemic heart disease and other diseases of the circulatory system; Z95.5 Presence of coronary angioplasty implant and graft; Z80.0 Family history of malignant neoplasm of digestive organs; Z88.8 Allergy status to other drugs, medicaments and biological substances; Z79.899 Other long term (current) drug therapy; Z79.82 Long term (current) use of aspirin

== ENCOUNTER 2018-01-17 12:55 | Emergency (ER) | payer OTHER ==
[~2018-01-17] VITALS: Wt 81.6 kg
[~2018-01-17 12:55] MED LIST changes: +DULOXETINE HCL30 MG PO; +DULOXETINE HCL60 MG PO; +QUETIAPINE FUM400 M1 PO; +Zostrix 0.1% T
[2018-01-17 13:16] LABS: BASO # 0.1 10*3/uL (0.0-0.1); BASO % 1.1 % (0.0-1.0); EOS # 0.2 10*3/uL (0.0-0.4); HEMATOCRIT 43.6 % (42.0-52.0); HEMOGLOBIN 14.8 g/dl (14.0-18.0); LYMPH # 2.9 10*3/uL (1.3-4.4); LYMPH % 27.2 % (27.0-41.0); MEAN CELL VOLUME 92.2 fl (80.0-94.0); MEAN CORPUSCULAR HGB 31.3 pg (27.0-31.0); MEAN CORPUSCULAR HGB CONC 33.9 g/dl (33.0-37.0); MONO # 0.7 10*3/uL (0.1-1.0); MONO % 6.3 % (3.0-9.0); NEUT # 6.7 10*3/uL (2.3-7.9); PLATELET COUNT AUTOMATED 245 10*3/uL (130-400); RED BLOOD COUNT 4.73 10*6/uL (4.50-5.90); RED CELL DISTRI WIDTH 12.3 % (0-14.5); WHITE BLOOD COUNT 10.6 10*3/uL (4.8-10.8)
[2018-01-17 13:25] LABS: ACT PARTIAL THROMBO TIME 25.5 SECONDS (20.8-31.5); INTERNATIONAL NORM RATIO 0.9 (2.0-3.5)
[2018-01-17 13:32] LABS: ALBUMIN 3.7 gm/dl (3.1-4.5); ALKALINE PHOSPHATASE 74 U/L (45-117); BUN 5 mg/dl (7-24); CHLORIDE 101 mmol/L (98-107); CREATININE 0.74 mg/dL (0.70-1.30); POTASSIUM 4.6 mmol/L (3.5-5.1); SGOT/AST 22 IU/L (3-35); SGPT/ALT 23 U/L (12-78); SODIUM 133 mmol/L (136-145)
[2018-01-17 13:38] LABS: THYROID STIM HORMONE (HS) 0.903 uIU/ml (0.358-4.75)
[2018-01-17 13:40] LABS: TROPONIN I < 0.015 ng/ml (<0.045)
[2018-01-17 16:28] LABS: BILIRUBIN NEGATIVE (NEGATIVE); BLOOD NEGATIVE (NEGATIVE); CLARITY CLEAR (CLEAR); COLOR YELLOW (YELLOW); GLUCOSE NEGATIVE (NEGATIVE); KETONE NEGATIVE (NEGATIVE); LEUKO ESTERASE NEGATIVE (NEGATIVE); NITRITE NEGATIVE (NEGATIVE); PH 5.5 (5.0-9.0); SPECIFIC GRAVITY <= 1.005 (1.005-1.030); UROBILINOGEN 0.2 E.U./dl (0.2-1.0)
[2018-01-17 16:36] LABS: URINE AMPHETAMINES < 1000 (1000ng/ml); URINE BARBITURATES < 200 (200ng/ml); URINE BENZODIAZEPINES < 200 (200ng/ml); URINE CANNABINOIDS (THC) < 50 (50ng/ml); URINE COCAINE < 300 (300ng/ml); URINE METHADONE < 300 (300ng/ml); URINE OPIATES < 300 (300ng/ml)
[2018-01-17 16:37] LABS: URINE PHENCYCLIDINE < 25 (25ng/ml)
[2018-01-17 17:08] LABS: WBC 0-2 wbc/hpf (0-5)
== END 2018-01-17 23:50 | disposition home or self-care (01) ==
LOC: ED 12:55
PROVIDERS: Emergency Medicine
DX: F10.129 Alcohol abuse with intoxication, unspecified (principal); F32.9 Major depressive disorder, single episode, unspecified; I25.10 Atherosclerotic heart disease of native coronary artery without angina pectoris; G89.29 Other chronic pain; J44.9 Chronic obstructive pulmonary disease, unspecified; I10 Essential (primary) hypertension; K21.9 Gastro-esophageal reflux disease without esophagitis; E78.2 Mixed hyperlipidemia; E11.40 Type 2 diabetes mellitus with diabetic neuropathy, unspecified; F17.200 Nicotine dependence, unspecified, uncomplicated; Z88.8 Allergy status to other drugs, medicaments and biological substances; Z79.899 Other long term (current) drug therapy; Z79.84 Long term (current) use of oral hypoglycemic drugs; Z79.82 Long term (current) use of aspirin; Z90.49 Acquired absence of other specified parts of digestive tract; Z95.1 Presence of aortocoronary bypass graft

== ENCOUNTER 2018-04-11 18:06 | Emergency (ER) | payer OTHER ==
[~2018-04-11] VITALS: Wt 90.7 kg
--- NOTE | ~2018-04-11 | EKG ---
[place], [place] ELECTROCARDIOGRAM REPORT NAME: CELESTINO RESENDIZ SR UNIT #: [id number] ROOM: DOCTOR: EPIPHKELTON DRAFT REPORT BIRTHDATE: [birth year] [facility] Test Date: 2018-04-11 Test Time: 18:32:11 Pat Name: CELESTINO RESENDIZ Department: Room: Gender: Manager Billing: Hilaria Viramontes : 1955 Requested By: SUBHA CATES Order Number: [id number] Reading MD: Jered Mcmahan MD Measurements Intervals [place] Rate: 76 P: 41 ND: 168 QRS: 75 QRSD: 87 T: 56 QT: 365 QTc: 411 Interpretive Statements Sinus rhythm Minimal ST elevation, lateral leads Baseline wander in lead(s) II,III,aVR,aVF,V1,V2 No previous ECG available for comparison Electronically Signed On 04-12-2018 16:08:36 PST by Jered Mcmahan MD CM:EKGRPT:ELECTROCARDIOGRAM REPORT 1832 1608 SUBHA KEMP DRAFT REPORT SUBHA CATES M.D.
[2018-04-11 18:39] LABS: BASO # 0.2 10*3/uL (0.0-0.1); BASO % 1.1 % (0.0-1.0); EOS # 0.5 10*3/uL (0.0-0.4); EOS % 3.4 % (1.0-4.0); HEMATOCRIT 41.9 % (42.0-52.0); HEMOGLOBIN 13.7 g/dl (14.0-18.0); LYMPH # 3.2 10*3/uL (1.3-4.4); LYMPH % 22.3 % (27.0-41.0); MEAN CELL VOLUME 92.9 fl (80.0-94.0); MEAN CORPUSCULAR HGB 30.4 pg (27.0-31.0); MEAN CORPUSCULAR HGB CONC 32.7 g/dl (33.0-37.0); MEAN PLATELET VOLUME 9.4 fl (9.6-12.3); MONO # 0.8 10*3/uL (0.1-1.0); MONO % 5.7 % (3.0-9.0); NEUT # 9.7 10*3/uL (2.3-7.9); PLATELET COUNT AUTOMATED 327 10*3/uL (130-400); RED BLOOD COUNT 4.51 10*6/uL (4.50-5.90); RED CELL DISTRI WIDTH 11.9 % (0-14.5); WHITE BLOOD COUNT 14.4 10*3/uL (4.8-10.8)
[2018-04-11 19:20] LABS: ALBUMIN 3.3 gm/dl (3.1-4.5); ALKALINE PHOSPHATASE 77 U/L (45-117); BUN 6 mg/dl (7-24); CHLORIDE 99 mmol/L (98-107); CREATININE 0.76 mg/dL (0.70-1.30); POTASSIUM 3.8 mmol/L (3.5-5.1); SGOT/AST 13 IU/L (3-35); SGPT/ALT 18 U/L (12-78); SODIUM 133 mmol/L (136-145); TOTAL PROTEIN 6.9 gm/dL (6.4-8.2)
[2018-04-11 19:21] LABS: TROPONIN I < 0.015 ng/ml (<0.045)
[2018-04-11 20:52] LABS: BILIRUBIN NEGATIVE (NEGATIVE); BLOOD NEGATIVE (NEGATIVE); CLARITY CLEAR (CLEAR); COLOR YELLOW (YELLOW); GLUCOSE NEGATIVE (NEGATIVE); KETONE NEGATIVE (NEGATIVE); LEUKO ESTERASE NEGATIVE (NEGATIVE); NITRITE NEGATIVE (NEGATIVE); PH 5.5 (5.0-9.0); SPECIFIC GRAVITY <= 1.005 (1.005-1.030); UROBILINOGEN 0.2 E.U./dl (0.2-1.0)
[2018-04-11 21:01] LABS: URINE AMPHETAMINES < 1000 (1000ng/ml); URINE BARBITURATES < 200 (200ng/ml); URINE BENZODIAZEPINES < 200 (200ng/ml); URINE CANNABINOIDS (THC) < 50 (50ng/ml); URINE COCAINE < 300 (300ng/ml); URINE METHADONE < 300 (300ng/ml); URINE OPIATES < 300 (300ng/ml)
[2018-04-11 21:04] LABS: URINE PHENCYCLIDINE < 25 (25ng/ml)
[2018-04-15] MEDS ORDERED: INVEGA SUSTENN156 MG IM (14:03)
[2018-04-15] MEDS ORDERED: DULOXETINE HCL30 MG PO (14:08)
[2018-04-15] MEDS ORDERED: TOPROL XL50 M1 PO (14:12)
[2018-04-15] MEDS ORDERED: MAGNESIUM200 MG PO (14:16)
[2018-04-15] MEDS ORDERED: DULE1ARO INH (14:18)
[2018-04-15] MEDS ORDERED: CLARITIN10 MG PO (14:19)
[2018-04-15] MEDS ORDERED: PROVENTIL HFA6.7 GM INH (14:23)
[2018-04-15] MEDS ORDERED: CYMBALTA30 MG PO (14:58)
[2018-04-22] MEDS ORDERED: DULOXETINE HCL30 MG PO ×2 (08:38)
[2018-04-22] MEDS ORDERED: HYDROXYZINE PAM25 M1 PO (08:38)
[2018-04-22] MEDS ORDERED: INVEGA SUSTENN234 MG IM (08:38)
[2018-04-22] MEDS ORDERED: LATU80TA PO (08:38)
== END 2018-04-12 08:50 | disposition home or self-care (01) ==
LOC: ED 18:06
PROVIDERS: Emergency Medicine; Emergency Medicine Emergency Medical Services
DX: F10.129 Alcohol abuse with intoxication, unspecified (principal); F32.9 Major depressive disorder, single episode, unspecified; F60.0 Paranoid personality disorder; F25.9 Schizoaffective disorder, unspecified; I25.10 Atherosclerotic heart disease of native coronary artery without angina pectoris; G89.29 Other chronic pain; J44.9 Chronic obstructive pulmonary disease, unspecified; I10 Essential (primary) hypertension; K21.9 Gastro-esophageal reflux disease without esophagitis; E78.2 Mixed hyperlipidemia; E11.9 Type 2 diabetes mellitus without complications; I48.91 Unspecified atrial fibrillation; F17.210 Nicotine dependence, cigarettes, uncomplicated; Z88.6 Allergy status to analgesic agent; Z79.899 Other long term (current) drug therapy; Z79.84 Long term (current) use of oral hypoglycemic drugs; Z79.82 Long term (current) use of aspirin

== ENCOUNTER 2018-10-08 14:43 | Inpatient (IN) | payer OTHER ==
[~2018-10-08] VITALS: Ht 172.7 cm; Wt 81.6 kg
--- NOTE | ~2018-10-08 | CON ---
[place], [place] REPORT OF CONSULTATION NAME[id number] UN[facility] #: [id number] ROOM: 424 DOCTOR: EZEKIEL BENAVIDEZ ED.DSUBHASH) BIRTHDATE: [birth year] DOS: 10/10/2018 HISTORY OF PRESENT ILLNESS: The patient is a 63-year-old male referred by the hospitalist for an evaluation of his depression. At the present time, this patient is on the 4th floor at [facility]. He states that he is and has four children. He does remain in contact with one of his children. He states he is on SSI for his mental health issues. His medical history is pertinent for alcohol dependence, benign tumor of the esophagus, schizoaffective disorder, coronary artery disease, chronic lumbar pain, COPD, hypertension, GERD, tobacco abuse. His psychiatric medications include Invega Sustenna, Latuda and Cymbalta. He does follow at the present time with Dr. [facility] [place], [place] and he also has a case management rn, Roseanna Mcgee and a drug and alcohol counselor, Dilia Argueta. He has followed with Dr. Garcia in the past and has been hospitalized on the Behavioral Health Unit here at [facility]. This patient denies any suicidal ideation or plan. He was awake, alert and oriented in all three spheres. He does admit to a significant auditory hallucinations and states he is having a difficult time with the auditory hallucinations. He is presently under the [facility] due to the fact he had been drinking 12 beers per day. He states that he is hearing voices most of the time and they have been worse recently. He believes that he needs his medications checked and asked to be admitted to the Senior [facility]al [facility] Unit here at the hospital and he definitely meets criteria for admission due to his auditory hallucinations. He does admit to drinking 12 beers a day, but he is detoxified at the present time. DIAGNOSES: 1. Schizoaffective disorder. 2. Alcohol dependence. RECOMMENDATIONS: In my opinion, this patient would benefit from admission to the Senior Behavioral Health Unit and I spoke with Dr. Garcia, the family practice medical doctor and they will arrange admission to the Senior [facility] Unit. Thank you very much for this consult. EZEKIEL BENAVIDEZ ED.D CM:CONSTR:REPORT OF CONSULTATION [id number] 10/11/18 0050 interface
--- NOTE | ~2018-10-08 | EKG ---
[place], [place] ELECTROCARDIOGRAM REPORT NAME: CELESTINO RESENDIZ SR UNIT #: [id number] ROOM: 424 DOCTOR: VIRIDIANA DRAFT REPORT BIRTHDATE: [birth year] [facility] Test Date: 2018-10-08 Test Time: 17:19:14 Pat Name: CELESTINO RESENDIZ Department: Room: 424 Gender: M Director Product Management: EKG.VA : 1955 Requested By: ELIZABETH BRYAN Order Number: [id number] Reading MD: Charles Em MD Measurements Intervals [place] Rate: 62 P: 27 NV: 157 QRS: 65 QRSD: 91 T: 66 QT: 398 QTc: 405 Interpretive Statements Sinus rhythm Atrial premature complex Compared to ECG 04/15/2018 17:29:26 Atrial premature complex(es) now present Electronically Signed On 10-10-2018 5:06:36 PDT by Charles Em MD CM:EKGRPT:ELECTROCARDIOGRAM REPORT [id number] ELIZABETH KEMP DRAFT REPORT ELIZABETH SPEARS
[~2018-10-08 14:43] MED LIST changes: +CLARITIN10 MG PO; +CYMBALTA30 MG PO; +DULE1ARO INH; +HYDROXYZINE PAM25 M1 PO; +INVEGA SUSTENN234 MG IM; +LATU80TA PO; +MAGNESIUM200 MG PO; +PROVENTIL HFA6.7 GM INH; +TOPROL XL50 M1 PO
[2018-10-08 14:44] VITALS: BP 150/69
[2018-10-08 15:32] VITALS: BP 165/71
[2018-10-08 17:29] LABS: BASO # 0.1 10*3/uL (0.0-0.1); EOS # 0.3 10*3/uL (0.0-0.4); EOS % 2.8 % (1.0-4.0); HEMATOCRIT 45.8 % (42.0-52.0); HEMOGLOBIN 15.1 g/dl (14.0-18.0); LYMPH # 2.4 10*3/uL (1.3-4.4); LYMPH % 19.5 % (27.0-41.0); MEAN CELL VOLUME 94.4 fl (80.0-94.0); MEAN CORPUSCULAR HGB 31.1 pg (27.0-31.0); MEAN PLATELET VOLUME 10.3 fl (9.6-12.3); MONO # 0.8 10*3/uL (0.1-1.0); MONO % 6.6 % (3.0-9.0); NEUT # 8.5 10*3/uL (2.3-7.9); NEUT % 69.7 % (47.0-73.0); PLATELET COUNT AUTOMATED 219 10*3/uL (130-400); RED BLOOD COUNT 4.85 10*6/uL (4.50-5.90); RED CELL DISTRI WIDTH 12.5 % (0-14.5); WHITE BLOOD COUNT 12.1 10*3/uL (4.8-10.8)
[2018-10-08 17:30] VITALS: BP 141/71
[2018-10-08 17:46] LABS: ACETAMINOPHEN (TYLENOL) < 5.0 ug/ml (10-30); ALKALINE PHOSPHATASE 80 U/L (45-117); BUN 6 mg/dl (7-24); CHLORIDE 104 mmol/L (98-107); CREATININE 0.86 mg/dL (0.70-1.30); ETHYL ALCOHOL < 3.0 mg/dl (<3); LIPASE 112 U/L (73-393); POTASSIUM 4.6 mmol/L (3.5-5.1); SGOT/AST 15 IU/L (3-35); SGPT/ALT 18 U/L (12-78); SODIUM 137 mmol/L (136-145); TOTAL PROTEIN 7.5 gm/dL (6.4-8.2)
--- NOTE | 2018-10-08 18:09 | NUR ---
NOTIFIED PHARMACY WE NEEDED MVI
[2018-10-08 18:26] LABS: BILIRUBIN NEGATIVE (NEGATIVE); BLOOD NEGATIVE (NEGATIVE); CLARITY CLEAR (CLEAR); COLOR YELLOW (YELLOW); GLUCOSE NEGATIVE (NEGATIVE); KETONE NEGATIVE (NEGATIVE); LEUKO ESTERASE NEGATIVE (NEGATIVE); NITRITE NEGATIVE (NEGATIVE); PH 5.5 (5.0-9.0); UROBILINOGEN 0.2 E.U./dl (0.2-1.0)
[2018-10-08 18:34] LABS: URINE AMPHETAMINES < 1000 (1000ng/ml); URINE BARBITURATES < 200 (200ng/ml); URINE BENZODIAZEPINES < 200 (200ng/ml); URINE CANNABINOIDS (THC) < 50 (50ng/ml); URINE COCAINE < 300 (300ng/ml); URINE METHADONE < 300 (300ng/ml); URINE OPIATES < 300 (300ng/ml)
[2018-10-08 18:37] LABS: WBC 0-2 wbc/hpf (0-5)
[2018-10-08 18:39] LABS: URINE PHENCYCLIDINE < 25 (25ng/ml)
--- NOTE | 2018-10-08 19:18 | NUR ---
PT RESTING IN BED, NO DISTRESS NOTED, PT HAS NO COMPLIANTS, VIT BAG INFUSING AT 150 CC/HR PER ORDER. IV SITE PATENT.
[2018-10-08 19:48] VITALS: BP 155/69
--- NOTE | 2018-10-08 19:48 | NUR ---
A 63, admitted to , under the services of LUCERO Mike DO with a diagnosis of ALCOHOL WITHDRAWAL. Chief complaint is ALCOHOL . Patient arrived via stretcher from ER. Monitor applied. Initial assessment completed. Vital signs taken and recorded. LUCERO MIKE DO notified of admission to the unit. Orders received. See assessment for past medical history, medications and allergies. Patient and/or family oriented to unit. [facility] Clothing/patient valuable form completed. ROHAN MARTIN
[2018-10-08 20:00] VITALS: BP 155/69
[2018-10-08] MEDS ORDERED: CYMBALTA60 MG PO (20:05)
[2018-10-08] MEDS ORDERED: QUETIAPINE FUM200 M3 PO (20:07)
[2018-10-08] MEDS ORDERED: ATARAX,VISTARIL50 MG PO (20:08)
--- NOTE | 2018-10-08 20:13 | NUR ---
DR SARMIENTO AWARE OF MED REC BEING UP TO DATE. COMPLETED WITH MEDS FROM HOME. SENT TO PHARMACY PER POLICY
[2018-10-08] MEDS ORDERED: LATUDA80 M1 PO (22:16)
--- NOTE | 2018-10-08 22:47 | NUR ---
PATIENT RESTING IN BED WITH NO NEEDS MADE. DENIES WITHDRAWAL SYMPTOMS AT THIS TIME. BED IN LOWEST POSITION, CALL LIGHT IN REACH
[2018-10-09] VITALS: BP 148/54
--- NOTE | 2018-10-09 01:48 | NUR ---
PATIENT DENYING NEEDS FOR PRN MEDICATION AT THIS TIME
[2018-10-09 07:58] VITALS: BP 123/55
--- NOTE | 2018-10-09 08:13 | NUR ---
ROUTINE MEDS GIVEN AT THIS TIME. PT SITTING UP IN RECLINER CHAIR. NO DISTRESS NOTED. DENIES ANY SOB AT REST. POX 97% VIA RA. WILL CONTINUE TO MONITOR. NO VOICED COMPLAINTS. CALL LIGHT WITHIN REACH. VSS.
[2018-10-09 12:00] VITALS: BP 130/65
--- NOTE | 2018-10-09 12:36 | NUR ---
U AWARE OF CONSULT.
--- NOTE | 2018-10-09 14:16 | NUR ---
PATIENT AMBULATES IN HALLWAY. NO VOICED COMPLAINTS. NO DISTRESS NOTED. WILL CONTINUE TO MONITOR.
--- NOTE | 2018-10-09 15:02 | NUR ---
PATIENT MEETS [facility]. PATIENT IS WANTING TO FOLLOW UP WITH [facility] FOR [facility]CARE PLAN. ANNEMARIE COFFEY B.A. ELECTRONIC DESIGN ENGINEER
[2018-10-09 16:00] VITALS: BP 117/49
[2018-10-09 20:00] VITALS: BP 142/60
--- NOTE | 2018-10-09 20:06 | NUR ---
PATIENT RESTING IN BED WATCHING TV. DENIES ANY NEEDS FOR PRN MEDICATIONS AT THIS TIME. PATIENT STATES HE FEELS MUCH BETTER THAN HE DID WHEN HE CAME TO THE ER. REMINDED TO NOT LEAVE THE FLOOR. BED IN LOWEST POSITION, CALL LIGHT IN REACH
--- NOTE | 2018-10-09 21:48 | NUR ---
PATIENT REFUSING TYLENOL AT THIS TIME. PATIENT STATES "DO NOT RETAKE MY VITALS AT MIDNIGHT". PATIENT INFORMED THAT EVERY PATIENT GETS THEIR MIDNIGHT VITALS CHECKED, AND DUE TO HIS ELEVATED TEMP HE WOULD NEED TO HAVE THAT RECHECKED AT MIDNIGHT SINCE HE IS REFUSING THE TYLENOL. PATIENT STATES "I KNOW HOW THIS WORKS. I HAVE BEEN IN THE HOSPITAL BEFORE. ALL YOU NEED TO DO IS TELL HER I AM REFUSING THEM. DO NOT DISTURB ME AGAIN TONIGHT. I AM SICK". WHEN OFFERED OTHER PRN MEDICATIONS FOR WITHDRAWAL SYMPTOMS PATIENT REFUSED.
[2018-10-10] VITALS: BP 129/63
--- NOTE | 2018-10-10 07:00 | NUR ---
PT. REFUSED AEROSOL TREATMENT.
[2018-10-10 08:00] VITALS: BP 119/68
--- NOTE | 2018-10-10 08:34 | NUR ---
PT UP IN CHAIR. NO DISTRESS NOTED. RESPIRATIONS EASY, REGULAR ON RA. LUNGS DIMINISHED WITH RHONCHI/WHEEZES POSTERIORLY. NO VOICED COMPLAINTS AT THIS TIME. WILL CONTINUE TO MONITOR. CALL LIGHT WITHIN REACH.
--- NOTE | 2018-10-10 09:18 | NUR ---
PT REFUSED LOVENOX INJECTION DESPITE EDUCATION.
--- NOTE | 2018-10-10 09:33 | NUR ---
IN TO SEE PATIENT.
--- NOTE | 2018-10-10 09:47 | NUR ---
TYLENOL GIVEN PER PRN ORDER FOR TEMP OF 100.5. WILL MONITOR EFFECTIVENESS. NO VOICED COMPLAINTS PER PT. CALL LIGHT WITHIN REACH.
--- NOTE | 2018-10-10 10:16 | NUR ---
SPOKE WITH DR.PRICE. ARMAS FOR PATIENT TO GO TO [facility] UPON DISCHARGE. NOTIFIED AT THIS TIME.
--- NOTE | 2018-10-10 10:53 | NUR ---
IN TO SEE PATIENT.
--- NOTE | 2018-10-10 11:14 | NUR ---
PT AMBULATORY IN HALLWAY.
[2018-10-10 12:00] VITALS: BP 103/52
--- NOTE | 2018-10-10 14:01 | NUR ---
[place] STAFF REVIEWED FOLLOW UP APPOINTMENT WITH PATIENT. PATIENT IS SCHEDULED TO [facility] ON . PATIENT AGREES AND UNDERSTANDS HIS AFTERCARE PLAN. ANNEMARIE COFFEY B.A. DREDGE ENGINEER
[2018-10-10 16:00] VITALS: BP 106/56
--- NOTE | 2018-10-10 16:00 | NUR ---
Patient resting. Responding to scheduled medications with fewer complaints of pain and anxiety.
--- NOTE | 2018-10-10 19:10 | NUR ---
PT IS AWAKE AND RESTING IN BED AT THIS TIME. NO TREMORS OR OTHER WITHDRAWAL SYMPTOMS NOTED. RESPS ARE EASY AND NONLABORED. CALL LIGHT WITHIN REACH, BED LOW. WILL CONTINUE TO MONITOR.
[2018-10-10 20:00] VITALS: BP 115/54
[2018-10-11 06:20] LABS: BASO # 0.1 10*3/uL (0.0-0.1); BASO % 0.7 % (0.0-1.0); EOS # 0.3 10*3/uL (0.0-0.4); EOS % 2.2 % (1.0-4.0); HEMATOCRIT 42.2 % (42.0-52.0); HEMOGLOBIN 13.4 g/dl (14.0-18.0); LYMPH # 1.4 10*3/uL (1.3-4.4); MEAN CELL VOLUME 94.8 fl (80.0-94.0); MEAN CORPUSCULAR HGB 30.1 pg (27.0-31.0); MEAN CORPUSCULAR HGB CONC 31.8 g/dl (33.0-37.0); MEAN PLATELET VOLUME 10.9 fl (9.6-12.3); MONO % 6.7 % (3.0-9.0); NEUT # 12.2 10*3/uL (2.3-7.9); NEUT % 80.9 % (47.0-73.0); PLATELET COUNT AUTOMATED 180 10*3/uL (130-400); RED BLOOD COUNT 4.45 10*6/uL (4.50-5.90); RED CELL DISTRI WIDTH 12.3 % (0-14.5); WHITE BLOOD COUNT 15.1 10*3/uL (4.8-10.8)
[2018-10-11 06:50] LABS: CREATININE 0.99 mg/dL (0.70-1.30)
[2018-10-11 08:00] VITALS: BP 112/58
--- NOTE | 2018-10-11 11:00 | NUR ---
case management received a message that patient would be going to the [facility] and needed an insurance authorization, called insurance, spoke to Blanche, gave patient's information, per Blanche, [facility] out of network with patient's insurance and he has no out of network benefits. she took patient's information and stated the insurance would have to do a bed search and call case management back regarding if patient could go to [facility] or be transferred to another facility, will await return call
--- NOTE | 2018-10-11 11:22 | NUR ---
REVIEWED CHART, PT ALERT AND ORIENTED. NO COMPLAINTS AT THIS TIME, CALL LIGHT WITHIN REACH.
[2018-10-11 12:00] VITALS: BP 121/56
[2018-10-11 16:00] VITALS: BP 126/61
[2018-10-11 20:00] VITALS: BP 135/66
[2018-10-12] VITALS: BP 127/70
--- NOTE | 2018-10-12 01:30 | NUR ---
PULSE OX AT THIS TIME IS 90% ON ROOM AIR. OXYGEN STARTED AT THIS TIME AT 2 LITERS VIA NASAL CANNULLA . SAO2 IS 96% WITH THE OXYGEN ON
--- NOTE | 2018-10-12 06:24 | NUR ---
SAO2 94%. O2 TAKEN OFF AT THIS TIME. NO VERBAL COMPLAINTS, NO SHORTNESS OF BREATH NOTED. CALL LIGHT WITHIN REACH
[2018-10-12 07:06] LABS: BUN 8 mg/dl (7-24); CHLORIDE 105 mmol/L (98-107); CREATININE 1.01 mg/dL (0.70-1.30); POTASSIUM 3.8 mmol/L (3.5-5.1); SODIUM 138 mmol/L (136-145)
[2018-10-12 07:08] LABS: BASO % 0.1 % (0.0-1.0); EOS % 0.1 % (1.0-4.0); HEMATOCRIT 44.5 % (42.0-52.0); HEMOGLOBIN 14.4 g/dl (14.0-18.0); LYMPH % 7.6 % (27.0-41.0); MEAN CELL VOLUME 94.9 fl (80.0-94.0); MEAN CORPUSCULAR HGB 30.7 pg (27.0-31.0); MEAN CORPUSCULAR HGB CONC 32.4 g/dl (33.0-37.0); MEAN PLATELET VOLUME 10.9 fl (9.6-12.3); MONO # 0.6 10*3/uL (0.1-1.0); MONO % 4.3 % (3.0-9.0); NEUT # 11.7 10*3/uL (2.3-7.9); NEUT % 87.4 % (47.0-73.0); RED BLOOD COUNT 4.69 10*6/uL (4.50-5.90); RED CELL DISTRI WIDTH 12.1 % (0-14.5); WHITE BLOOD COUNT 13.4 10*3/uL (4.8-10.8)
[2018-10-12 07:15] LABS: PLATELET COUNT AUTOMATED 235 10*3/uL (130-400)
[2018-10-12 08:00] VITALS: BP 129/61
--- NOTE | 2018-10-12 08:36 | NUR ---
PRN VISTARIL GIVEN AT 0836 DUE TO INTRUSIVE THOUGHTS, AUDITORY HALLUCATIONS. PT IS CONCERNED ABOUT HIS INSURANCE AND TRANSFER TO [facility].
--- NOTE | 2018-10-12 11:09 | NUR ---
IV IN LEFT FOREARM OUTDATED. NO SIGNS OF INFECTION, PATENT. PER PT DOESN'T WANT IV CHANGED.
[2018-10-12 12:00] VITALS: BP 137/70
--- NOTE | 2018-10-12 12:05 | NUR ---
INSTRUCTED FOR FLUTTER THERAPY. PT GIVING A GOOD EFFORT DURING RETURN DEIMONSTRATION. INSTRUCTED FOR Q2 HOUR USE.
[2018-10-12 16:00] VITALS: BP 118/55
[2018-10-12 20:00] VITALS: BP 112/67
[2018-10-13] VITALS: BP 148/58
--- NOTE | 2018-10-13 02:07 | NUR ---
24 HR chart check completed.
--- NOTE | 2018-10-13 06:07 | NUR ---
24 HR chart check completed.
[2018-10-13 08:00] VITALS: BP 131/57
[2018-10-13 12:00] VITALS: BP 136/52
[2018-10-13 16:00] VITALS: BP 110/60
[2018-10-13 20:00] VITALS: BP 110/59
[2018-10-14] VITALS: BP 147/52
--- NOTE | 2018-10-14 00:49 | NUR ---
PATIENT SITTING IN CHAIR AT BEDSIDE RECEIVING A BREATHING TREATMENT. PATIENT STATES THAT HE IS FEELING OK. PATIENT STATES HE WILL RETURN TO BED ONCE HE IS DONE WITH HIS TX. CALL LIGHT WITHIN REACH. WILL MONITOR.
--- NOTE | 2018-10-14 00:49 | NUR ---
24 HR chart check completed.
[2018-10-14 08:00] VITALS: BP 143/66
--- NOTE | 2018-10-14 08:30 | NUR ---
case management received a call from Rena at [facility], she stated patient is approved to go to [facility], hospitalist nurse director and [facility] staff notified
[2018-10-14] MEDS ORDERED: MUCINEX ER600 MG PO (11:34)
[2018-10-14] MEDS ORDERED: PREDNISONE10 MG PO (11:34)
[2018-10-14] MEDS ORDERED: LEVOFLOXACIN750 M2 PO (11:34)
[2018-10-14 12:00] VITALS: BP 121/52
--- NOTE | 2018-10-14 13:39 | NUR ---
REPORT GIVEN TO [facility] NURSE ASHANTI. PT TO BE TRANSFERRED.
--- NOTE | 2018-10-14 14:15 | NUR ---
PT DISCHARGED VIA WHEELCHAIR TO THE U AT THIS TIME.
[2018-10-14] MEDS ORDERED: HUMALOG100 UNIT/2 SQ (16:51)
[2018-10-14] MEDS ORDERED: NATURE'S BLEND F1 MG PO (16:58)
[2018-10-14] MEDS ORDERED: Lovenox40 MG/0.4 SC (17:06)
[2018-10-14] MEDS ORDERED: MULTIVITAMINS1 EAC4 PO (17:08)
[2018-10-14] MEDS ORDERED: NATURE'S BLEND100 M2 PO (17:09)
[2018-10-14] MEDS ORDERED: MOTRIN 600 MG E4 TAB PO (17:15)
[2018-10-14] MEDS ORDERED: ACCUNEB 0.1.25 MG/1 INH (17:15)
[2018-10-14] MEDS ORDERED: ROBAXIN-750750 MG PO (17:18)
[2018-10-14] MEDS ORDERED: SENOKOT-S TABL1 EACH PO (17:20)
[2018-10-14] MEDS ORDERED: VISTARIL50 MG PO (17:21)
== END 2018-10-14 14:15 | disposition home health service (06) | DRG 896 ==
LOC: ED 14:43 → EDHOLD 19:07 → 4E 19:07
PROVIDERS: Physician Assistant; Student in an Organized Health Care Education/Training Program; ADMIT Internal Medicine
DX: F10.232 Alcohol dependence with withdrawal with perceptual disturbance (principal); J18.1 Lobar pneumonia, unspecified organism; I25.810 Atherosclerosis of coronary artery bypass graft(s) without angina pectoris; F33.1 Major depressive disorder, recurrent, moderate; F41.9 Anxiety disorder, unspecified; F12.10 Cannabis abuse, uncomplicated; M54.5 Low back pain; G89.29 Other chronic pain; D72.810 Lymphocytopenia; E11.65 Type 2 diabetes mellitus with hyperglycemia; I10 Essential (primary) hypertension; F25.0 Schizoaffective disorder, bipolar type; E55.9 Vitamin D deficiency, unspecified; E78.2 Mixed hyperlipidemia; E11.40 Type 2 diabetes mellitus with diabetic neuropathy, unspecified; J43.9 Emphysema, unspecified; K21.9 Gastro-esophageal reflux disease without esophagitis; F17.210 Nicotine dependence, cigarettes, uncomplicated; Z71.6 Tobacco abuse counseling; Z88.6 Allergy status to analgesic agent; Z90.49 Acquired absence of other specified parts of digestive tract; Z95.1 Presence of aortocoronary bypass graft; Z95.5 Presence of coronary angioplasty implant and graft; Z80.0 Family history of malignant neoplasm of digestive organs; Z82.49 Family history of ischemic heart disease and other diseases of the circulatory system; Z79.899 Other long term (current) drug therapy; Z79.82 Long term (current) use of aspirin

== ENCOUNTER 2018-10-14 14:59 | Inpatient (IN) | payer OTHER ==
[~2018-10-14] VITALS: Ht 172.7 cm; Wt 81.6 kg
--- NOTE | ~2018-10-14 | DS ---
[place], [place] DISCHARGE SUMMARY NAME: CELESTINO RESENDIZ SR [facility] #: [id number] UNIT #: [id number] ROOM: 312 DOCTOR: RAD LUEVANO MD BIRTHDATE: [birth year] DOS: 10/16/2018 CHIEF COMPLAINT: "I think I am feeling better. I think I am ready to go." HISTORY OF PRESENT ILLNESS: This is a 63-year-old white male known to me from my previous practice in [place], [place] as well as multiple psychiatric admissions to the [facility]. He initially presented to the Emergency Room at [facility] and was admitted for alcohol detoxification. The patient has been drinking alcohol excessively because of the increase in his auditory hallucinations. They have been disturbing him so much, he cannot sleep without being intoxicated. He had been regularly receiving his Invega Sustenna injection, but still had a flareup of psychotic symptoms. He willingly went to the psychiatric unit to be restabilized on medication. SUMMARY OF HOSPITAL COURSE: The patient was admitted to the unit where he did feel that he was in a better place and did not necessarily need to stay longer. I convinced him to consider starting Haldol Decanoate to alternate with the Invega Sustenna and he agreed to take an injection and then allow me 24 hours to monitor him for any potential side effects. He was given Haldol Decanoate 100 mg IM, then on 10/15/2018, the patient tolerated this well. He did not experience any extrapyramidal symptoms or tardive dyskinesia and did feel that it was already helping him feel better. He voiced positive plans for the future and was going to follow up with the [facility] and follow up with Dr. He Tineo. MENTAL STATUS AT DISCHARGE: He is alert and oriented to person, place and time. Mood for the most part is euthymic. Affect is appropriate. Speech rate and pattern is within normal limits. He does exhibit spontaneity. He endorses no hypomania or shelby. He endorses no auditory or visual hallucinations at this time. There were no delusions, no paranoia. Memory for the most part was intact. DIAGNOSIS UPON DISCHARGE: Schizoaffective disorder. DISPOSITION: The patient was given a handwritten prescription for Haldol Decanoate. He will follow up with the [facility] in [place], [place], specifically Dr. He Tineo, his psychiatrist. [place], [place] DISCHARGE SUMMARY NAME: CELESTINO RESENDIZ SR UNIT #: [id number] ROOM: 312 DOCTOR: RAD LUEVANO MD BIRTHDATE: [birth year] RAD LUEVANO MD CM:GLEN [id number] RAD LUEVAON MD 10/16/18 1110 interface
--- NOTE | ~2018-10-14 | WRIGHTHP ---
[place], [place] PATIENT HISTORY AND PHYSICAL EXAM NAME: CELESTINO RESENDIZ SR [facility] #: [id number] UNIT #: [id number] ROOM: 312 DOCTOR: RAD LUEVANO MD BIRTHDATE: [birth year] DOS: 10/14/2018 CHIEF COMPLAINT: "I think I'm feeling better. I think I'm ready to go." HISTORY OF PRESENT ILLNESS: This is a 63-year-old white male known to me from my previous practice in [place], [place] as well as [facility]. The patient had presented to the Emergency Room at [facility] and was admitted for alcohol detoxification. The patient reports he has been drinking alcohol excessively because the auditory hallucinations have been so disturbing he cannot sleep without being intoxicated. The patient had been receiving his Invega Sustenna injection on a routine basis, but despite this fact had a flareup in psychotic symptoms that resulted in his excessive drinking and subsequent admission to the hospital. He is admitted now to re-stabilize on medication, to engage in individual and haas milieu activity and to determine the least restrictive environment to which he could return. PAST MEDICAL HISTORY: Remarkable for a benign tumor of the esophagus, coronary artery disease, chronic lumbar pain, COPD, hypertension, GERD, hyperlipidemia, neuropathy, nicotine abuse, diabetes and vitamin D deficiency. SOCIAL HISTORY: The patient is a former crack cocaine user, having quit in 2001. He is also reportedly a former marijuana user, having quit approximately 2 months ago. He does smoke at least a pack of cigarettes a day and drinks 12 beers per day per his report. ALLERGIES: He lists allergies to NAPROXEN. STRENGTHS: Good verbal skills, ambulatory. WEAKNESSES: Chronic severe mental health issues, poor coping skills. MENTAL STATUS: The patient is alert and oriented. Mood does seem to be fairly euthymic this morning. He was bright and pleasant and engaging. He tended to minimize his symptomatology. He did not exhibit any signs suggestive of hypomania or shelby. He minimized the auditory hallucinations. Memory is intact. DIAGNOSIS: Schizoaffective disorder. PLAN: Given the fact that the patient is compliant on his Invega Sustenna, but had a psychotic break nonetheless, I will attempt to stabilize now utilizing Invega Sustenna alternating with Haldol Decanoate to improve compliance and breakthrough the psychosis. The patient is in agreement to receive a Haldol Decanoate injection today. We will monitor over the next 24 hours for risk, benefit and determine then the least restrictive environment to which he could return. [place], [place] PATIENT HISTORY AND PHYSICAL EXAM NAME: CELESTINO RESENDIZ SR UNIT #: [id number] ROOM: [facility] DOCTOR: RAD LUEVANO MD BIRTHDATE: [birth year] RAD LUEVANO MD CM:HISPHYS:PATIENT HISTORY AND PHYSICAL EXAMINATION RAD LUEVANO MD 10/15/18 0949 interface
[~2018-10-14 14:59] MED LIST changes: +ATARAX,VISTARIL50 MG PO; +CYMBALTA60 MG PO; +LATUDA80 M1 PO; +LEVOFLOXACIN750 M2 PO; +MUCINEX ER600 MG PO; +PREDNISONE10 MG PO; +QUETIAPINE FUM200 M3 PO
[2018-10-14] MEDS ORDERED: HUMALOG100 UNIT/2 SQ (16:51)
[2018-10-14] MEDS ORDERED: NATURE'S BLEND F1 MG PO (16:58)
[2018-10-14] MEDS ORDERED: Lovenox40 MG/0.4 SC (17:06)
[2018-10-14] MEDS ORDERED: MULTIVITAMINS1 EAC4 PO (17:08)
[2018-10-14] MEDS ORDERED: NATURE'S BLEND100 M2 PO (17:09)
[2018-10-14] MEDS ORDERED: ACCUNEB 0.1.25 MG/1 INH (17:15)
[2018-10-14] MEDS ORDERED: MOTRIN 600 MG E4 TAB PO (17:15)
[2018-10-14] MEDS ORDERED: ROBAXIN-750750 MG PO (17:18)
[2018-10-14] MEDS ORDERED: SENOKOT-S TABL1 EACH PO (17:20)
[2018-10-14] MEDS ORDERED: VISTARIL50 MG PO (17:21)
[2018-10-14 17:25] VITALS: BP 136/57
[2018-10-14 17:32] VITALS: BP 136/57
[2018-10-14 20:00] VITALS: BP 164/68
[2018-10-15 07:01] LABS: HEMATOCRIT 47.1 % (42.0-52.0); HEMOGLOBIN 15.1 g/dl (14.0-18.0); MEAN CORPUSCULAR HGB 30.4 pg (27.0-31.0); MEAN CORPUSCULAR HGB CONC 32.1 g/dl (33.0-37.0); MEAN PLATELET VOLUME 10.1 fl (9.6-12.3); PLATELET COUNT AUTOMATED 298 10*3/uL (130-400); RED BLOOD COUNT 4.96 10*6/uL (4.50-5.90); RED CELL DISTRI WIDTH 12.1 % (0-14.5); WHITE BLOOD COUNT 14.1 10*3/uL (4.8-10.8)
[2018-10-15 07:24] LABS: CHLORIDE 104 mmol/L (98-107); POTASSIUM 4.2 mmol/L (3.5-5.1); SODIUM 141 mmol/L (136-145)
[2018-10-15 07:39] VITALS: BP 122/76
[2018-10-15 07:39] LABS: ALBUMIN 3.3 gm/dl (3.1-4.5); ALKALINE PHOSPHATASE 79 U/L (45-117); BUN 15 mg/dl (7-24); CHOLESTEROL 154 mg/dL (<200); HDL CHOLESTEROL 46 mg/dl (40-60); LDL CHOLESTEROL 87 mg/dL (9-159); SGOT/AST 8 IU/L (3-35); SGPT/ALT 15 U/L (12-78); TOTAL PROTEIN 7.1 gm/dL (6.4-8.2); TRIGLYCERIDES 107 mg/dl (<150); VLDL CHOLESTEROL 21 mg/dL (6-40)
[2018-10-15 07:57] LABS: PLATELET SUFFICIENCY NORMAL (NORMAL); TOTAL CELLS COUNTED 100 #CELLS
[2018-10-15 08:56] LABS: VITAMIN D, 25-HYDROXY 39.9 ng/mL (30-100)
[2018-10-15 20:00] VITALS: BP 123/72
[2018-10-16 07:46] VITALS: BP 121/64
== END 2018-10-16 13:55 | disposition home or self-care (01) | DRG 885 ==
LOC: 3N 14:59
PROVIDERS: ADMIT Psychiatry & Neurology Psychiatry
DX: F25.0 Schizoaffective disorder, bipolar type (principal); J18.1 Lobar pneumonia, unspecified organism; J41.0 Simple chronic bronchitis; F31.9 Bipolar disorder, unspecified; I25.10 Atherosclerotic heart disease of native coronary artery without angina pectoris; M54.2 Cervicalgia; I10 Essential (primary) hypertension; K21.9 Gastro-esophageal reflux disease without esophagitis; E11.40 Type 2 diabetes mellitus with diabetic neuropathy, unspecified; F17.210 Nicotine dependence, cigarettes, uncomplicated; F41.9 Anxiety disorder, unspecified; E11.65 Type 2 diabetes mellitus with hyperglycemia; E55.9 Vitamin D deficiency, unspecified; E78.2 Mixed hyperlipidemia; M54.5 Low back pain; Z88.8 Allergy status to other drugs, medicaments and biological substances; Z71.6 Tobacco abuse counseling; Z90.49 Acquired absence of other specified parts of digestive tract; Z95.5 Presence of coronary angioplasty implant and graft; Z95.1 Presence of aortocoronary bypass graft; Z82.49 Family history of ischemic heart disease and other diseases of the circulatory system; Z80.0 Family history of malignant neoplasm of digestive organs; Z79.899 Other long term (current) drug therapy; Z79.82 Long term (current) use of aspirin

== ENCOUNTER 2021-02-25 15:21 | Emergency (ER) | payer OTHER ==
[~2021-02-25] VITALS: Ht 165.1 cm; Wt 81.6 kg
[~2021-02-25 15:21] MED LIST changes: +ACCUNEB 0.1.25 MG/1 INH; +HUMALOG100 UNIT/2 SQ; +Lovenox40 MG/0.4 SC; +MOTRIN 600 MG E4 TAB PO; +MULTIVITAMINS1 EAC4 PO; +NATURE'S BLEND100 M2 PO; +SENOKOT-S TABL1 EACH PO; +VISTARIL50 MG PO
[2021-02-25 15:49] LABS: BASO # 0.1 10*3/uL (0.0-0.1); BASO % 1.2 % (0.0-1.0); EOS # 0.4 10*3/uL (0.0-0.4); EOS % 3.6 % (1.0-4.0); HEMATOCRIT 38.4 % (42.0-52.0); LYMPH # 2.1 10*3/uL (1.3-4.4); LYMPH % 21.7 % (27.0-41.0); MEAN CELL VOLUME 83.7 fl (80.0-94.0); MEAN CORPUSCULAR HGB 26.8 pg (27.0-31.0); MEAN PLATELET VOLUME 9.8 fl (9.6-12.3); MONO # 1.1 10*3/uL (0.1-1.0); MONO % 11.2 % (3.0-9.0); NEUT # 6.1 10*3/uL (2.3-7.9); PLATELET COUNT AUTOMATED 256 10*3/uL (130-400); RED BLOOD COUNT 4.59 10*6/uL (4.50-5.90); RED CELL DISTRI WIDTH 15.3 % (0-14.5); WHITE BLOOD COUNT 9.8 10*3/uL (4.8-10.8)
[2021-02-25 16:07] LABS: ALBUMIN 3.5 gm/dl (3.1-4.5); ALKALINE PHOSPHATASE 75 U/L (45-117); BUN 8 mg/dl (7-24); CHLORIDE 100 mmol/L (98-107); CREATININE 0.95 mg/dL (0.70-1.30); POTASSIUM 3.7 mmol/L (3.5-5.1); SGOT/AST 13 IU/L (3-35); SGPT/ALT 15 U/L (12-78); SODIUM 132 mmol/L (136-145)
[2021-02-25 20:26] LABS: ACETAMINOPHEN (TYLENOL) < 5.0 ug/ml (10-30)
[2021-02-25 20:31] LABS: BILIRUBIN Negative (Negative); BLOOD Negative (Negative); CLARITY Clear (Clear); COLOR Yellow (Yellow); GLUCOSE Negative (Negative); KETONE Negative (Negative); LEUKO ESTERASE Negative (Negative); NITRITE Negative (Negative); SPECIFIC GRAVITY <= 1.005 (1.001-1.030); UROBILINOGEN 0.2 E.U./dl (0.0-1.0)
[2021-02-25 20:32] LABS: URINE AMPHETAMINES < 1000 (1000ng/ml); URINE BARBITURATES < 200 (200ng/ml); URINE BENZODIAZEPINES < 200 (200ng/ml); URINE CANNABINOIDS (THC) > 50 (50ng/ml); URINE COCAINE < 300 (300ng/ml); URINE METHADONE < 300 (300ng/ml); URINE OPIATES < 300 (300ng/ml)
[2021-02-25 20:38] LABS: WBC 0-2 wbc/hpf (0-5)
[2021-02-25 20:41] LABS: URINE PHENCYCLIDINE < 25 (25ng/ml)
== END 2021-02-26 09:15 | disposition home or self-care (01) ==
LOC: ED 15:21
PROVIDERS: Emergency Medicine; Family Medicine
DX: F10.129 Alcohol abuse with intoxication, unspecified (principal); F32.9 Major depressive disorder, single episode, unspecified; R45.851 Suicidal ideations; F17.200 Nicotine dependence, unspecified, uncomplicated; Z88.8 Allergy status to other drugs, medicaments and biological substances; Z79.899 Other long term (current) drug therapy; Z79.82 Long term (current) use of aspirin; Z79.4 Long term (current) use of insulin; Z90.49 Acquired absence of other specified parts of digestive tract; Z95.5 Presence of coronary angioplasty implant and graft; Y90.6 Blood alcohol level of 120-199 mg/100 ml